=== PATIENT | male | born 1950 | race Caucasian/White ===

== ENCOUNTER 2019-12-06 07:59 | Inpatient (IN) ==
[2019-12-06] MEDS ORDERED: 0.9 % Sodium Chloride 1,000 ML IVC SCH (08:30)
[2019-12-06] MEDS ORDERED: ISOVUE-370 200 ML INFUS..BTL ONE (12:37)
[2019-12-06] MEDS ORDERED: *HR* Heparin 10,000 UNIT/10 ML VIAL ONE (12:37)
[2019-12-06] MEDS ORDERED: Heparin 1,000 UNITS/500 mL 500 ML ONE (12:37)
[2019-12-06] MEDS ORDERED: 0.9 % Sodium Chloride 1,000 ML ONE (12:37)
[2019-12-06] MEDS ORDERED: Nitroglycerin 1,000 MCG/10 ML VIAL IV ONE (12:38)
[2019-12-06] MEDS ORDERED: *HR* FentaNYL (PF) 100 MCG/2 ML VIAL ONE (13:30)
[2019-12-06] MEDS ORDERED: *HR* Midazolam HCl 2 MG/2 ML VIAL ONE (13:30)
[2019-12-06] MEDS ORDERED: Nitroglycerin 0.4 MG TAB.SUBL SL PRN (14:19)
[2019-12-06] MEDS ORDERED: Perflutren Lipid Microsphere 1.3 ML in 0.9 % Sodium Chloride 8.7 ML IVP PRN (14:21)
[2019-12-06] MEDS ORDERED: Ondansetron ODT 4 MG TAB.RAPDIS SL PRN (22:17)
[2019-12-06] MEDS: BuPROPion SR (12 HR) 150 MG TABLET PO SCH (23:07)
[2019-12-06] MEDS: Ondansetron ODT 4 MG TAB.RAPDIS SL PRN (23:07)
[2019-12-07 01:41] LABS: Basophils % 0.3 %; Eosinophils # 0.1 K/mcL (0.0-0.6); Eosinophils % 1.1 %; Hematocrit 46.4 % (37.5-50.1); Hemoglobin 15.5 g/dL (12.9-16.9); Immature Granulocytes % 0.3 % (0-4); Lymphocytes # 1.2 K/mcL (0.6-4.6); Lymphocytes % 13.7 %; Mean Corpuscular HGB Conc 33.4 g/dL (31.6-35.5); Mean Corpuscular Hemoglobin 32.1 pg (28.0-33.3); Mean Corpuscular Volume 96.1 fL (83.0-100.0); Mean Platelet Volume 9.7 fL (9.4-12.4); Monocytes # 0.6 K/mcL (0.0-1.3); Monocytes % 6.4 %; Neutrophils # 6.9 K/mcL (1.6-8.9); Platelet Count 224 K/mcL (140-400); Red Blood Count 4.83 M/mcL (4.19-5.50); Red Cell Distribution Width 13.1 % (11.5-14.5); Segmented Neutrophils % 78.2 %; White Blood Count 8.8 K/mcL (4.3-11.1)
[2019-12-07 02:02] LABS: BUN/Creatinine Ratio 17 (6-26); Blood Urea Nitrogen 12 mg/dL (8-23); Carbon Dioxide 20 mEq/L (23-29); Chloride 101 mEq/L (98-107); Glucose 131 mg/dL (70-105); Osmolality,Calculated 278 (280-300); Potassium 3.9 mEq/L (3.5-5.1); Sodium 133 mEq/L (136-145); eGFR For African Americans > 60 (> 60); eGFR For Non-African Americans > 60 (> 60)
[2019-12-07] MEDS: *HR* Enoxaparin 40 MG/0.4 ML SYRINGE SQ SCH (06:24)
[2019-12-07] MEDS ORDERED: (Ezetimibe [Zetia] 10 MG) PO SCH (09:00)
[2019-12-07] MEDS: BuPROPion SR (12 HR) 150 MG TABLET PO SCH (09:00)
[2019-12-07] MEDS: Budesonide/Formoterol 160/4.5 1 PUFF INH IH SCH (09:19)
[2019-12-07] MEDS: Ondansetron ODT 4 MG TAB.RAPDIS SL PRN (10:35)
[2019-12-07 11:17] LABS: Hematocrit 44.5 % (37.5-50.1); Mean Corpuscular HGB Conc 33.7 g/dL (31.6-35.5); Mean Corpuscular Hemoglobin 31.8 pg (28.0-33.3); Mean Corpuscular Volume 94.3 fL (83.0-100.0); Mean Platelet Volume 9.6 fL (9.4-12.4); Platelet Count 214 K/mcL (140-400); Red Blood Count 4.72 M/mcL (4.19-5.50); White Blood Count 7.9 K/mcL (4.3-11.1)
[2019-12-07] MEDS ORDERED: 0.9 % Sodium Chloride 500 ML IVC SCH (14:09)
[2019-12-07] MEDS ORDERED: Isovue-370 500 ML BOTTLE IVP ONE (14:16)
[2019-12-07] MEDS: Aspirin 81 MG TAB.CHEW PO SCH (14:57)
[2019-12-07] MEDS ORDERED: *HR* LORazepam 2 MG/ML VIAL IVP PRN (14:57)
[2019-12-07] MEDS: Metoprolol XL (24 HR) Succ 25 MG TAB.ER.24H PO SCH (14:59)
[2019-12-07] MEDS: Finasteride 5 MG TABLET PO SCH (14:59)
[2019-12-07 15:12] LABS: Alanine Aminotransferase 11 Units/L (7-52); Albumin 3.8 g/dL (3.5-5.7); Albumin/Globulin Ratio 1.5 (1.1-2.2); Alkaline Phosphatase 71 Units/L (34-104); Aspartate Amino Transferase 12 Units/L (13-39); Aspartate Amino Transferase 13 Units/L (13-39); BUN/Creatinine Ratio 13 (6-26); Bilirubin,Total 0.6 mg/dL (0.3-1.0); Blood Urea Nitrogen 11 mg/dL (8-23); Calcium 8.6 mg/dL (8.6-10.3); Carbon Dioxide 28 mEq/L (23-29); Chloride 100 mEq/L (98-107); Globulin 2.6 g/dL (2.4-3.5); Glucose 109 mg/dL (70-105); Lipase 33 Units/L (11-82); Osmolality,Calculated 278 (280-300); Sodium 134 mEq/L (136-145); Total Protein 6.4 g/dL (6.4-8.9); eGFR For African Americans > 60 (> 60); eGFR For Non-African Americans > 60 (> 60)
[2019-12-07] MEDS ORDERED: Thiamine (B-1) 100 MG, Folic Acid 1 MG, MVI, adult with vitamin K 10 ML in 0.9 % Sodi... IVPB ONE (16:00)
[2019-12-08] MEDS: *HR* Enoxaparin 40 MG/0.4 ML SYRINGE SQ SCH (05:50)
[2019-12-08] MEDS: Budesonide/Formoterol 160/4.5 1 PUFF INH IH SCH (07:33)
[2019-12-08] MEDS: Aspirin 81 MG TAB.CHEW PO SCH (07:37)
[2019-12-08] MEDS: Thiamine (B-1) 100 MG TABLET PO SCH (07:37)
[2019-12-08] MEDS: Folic Acid 1 MG TABLET PO SCH (07:37)
[2019-12-08] MEDS: Finasteride 5 MG TABLET PO SCH (07:37)
[2019-12-08] MEDS: Metoprolol XL (24 HR) Succ 25 MG TAB.ER.24H PO SCH (07:37)
[2019-12-08 08:34] LABS: Chol/HDL Ratio 5.7 (0-4.9)
[2019-12-08 08:42] LABS: Estimated Average Glucose 120 mg/dl
[2019-12-09 02:11] LABS: Basophils % 0.7 %; Eosinophils # 0.2 K/mcL (0.0-0.6); Eosinophils % 2.6 %; Hematocrit 39.5 % (37.5-50.1); Immature Granulocytes % 0.3 % (0-4); Lymphocytes # 1.9 K/mcL (0.6-4.6); Lymphocytes % 31.3 %; Mean Corpuscular HGB Conc 33.2 g/dL (31.6-35.5); Mean Corpuscular Hemoglobin 31.5 pg (28.0-33.3); Mean Platelet Volume 9.8 fL (9.4-12.4); Monocytes # 0.6 K/mcL (0.0-1.3); Monocytes % 9.1 %; Neutrophils # 3.4 K/mcL (1.6-8.9); Platelet Count 183 K/mcL (140-400); Red Blood Count 4.16 M/mcL (4.19-5.50); Red Cell Distribution Width 12.9 % (11.5-14.5)
[2019-12-09 02:23] LABS: BUN/Creatinine Ratio 18 (6-26); Blood Urea Nitrogen 14 mg/dL (8-23); Calcium 8.5 mg/dL (8.6-10.3); Carbon Dioxide 25 mEq/L (23-29); Chloride 103 mEq/L (98-107); Glucose 95 mg/dL (70-105); Osmolality,Calculated 280 (280-300); Potassium 4.4 mEq/L (3.5-5.1); Sodium 135 mEq/L (136-145); eGFR For African Americans > 60 (> 60); eGFR For Non-African Americans > 60 (> 60)
[2019-12-09 02:33] LABS: Hemoglobin 13.1 g/dL (12.9-16.9)
[2019-12-09] MEDS: *HR* Enoxaparin 40 MG/0.4 ML SYRINGE SQ SCH (05:49)
[2019-12-09] MEDS: Budesonide/Formoterol 160/4.5 1 PUFF INH IH SCH (07:23)
[2019-12-09] MEDS: Metoprolol XL (24 HR) Succ 25 MG TAB.ER.24H PO SCH (08:45)
[2019-12-09] MEDS: Finasteride 5 MG TABLET PO SCH (08:45)
[2019-12-09] MEDS: Aspirin 81 MG TAB.CHEW PO SCH (08:45)
[2019-12-09] MEDS: Thiamine (B-1) 100 MG TABLET PO SCH (08:45)
[2019-12-09] MEDS: Folic Acid 1 MG TABLET PO SCH (08:45)
[2019-12-09] MEDS ORDERED: Bisacodyl 10 MG RECTAL SUPPOSITORY RC ONE (22:21)
[2019-12-10] MEDS: *HR* Enoxaparin 40 MG/0.4 ML SYRINGE SQ SCH (06:10)
[2019-12-10 06:34] LABS: Basophils % 0.5 %; Eosinophils # 0.2 K/mcL (0.0-0.6); Eosinophils % 2.6 %; Hematocrit 42.6 % (37.5-50.1); Hemoglobin 14.2 g/dL (12.9-16.9); Immature Granulocytes % 0.3 % (0-4); Lymphocytes # 1.7 K/mcL (0.6-4.6); Lymphocytes % 28.1 %; Mean Corpuscular HGB Conc 33.3 g/dL (31.6-35.5); Mean Corpuscular Hemoglobin 31.6 pg (28.0-33.3); Mean Corpuscular Volume 94.7 fL (83.0-100.0); Mean Platelet Volume 9.6 fL (9.4-12.4); Monocytes # 0.5 K/mcL (0.0-1.3); Monocytes % 8.6 %; Neutrophils # 3.6 K/mcL (1.6-8.9); Platelet Count 196 K/mcL (140-400); Red Cell Distribution Width 12.6 % (11.5-14.5); Segmented Neutrophils % 59.9 %; White Blood Count 6.1 K/mcL (4.3-11.1)
[2019-12-10] MEDS: Budesonide/Formoterol 160/4.5 1 PUFF INH IH SCH (07:30)
[2019-12-10] MEDS: Folic Acid 1 MG TABLET PO SCH (10:27)
[2019-12-10] MEDS: Thiamine (B-1) 100 MG TABLET PO SCH (10:27)
[2019-12-10] MEDS: Aspirin 81 MG TAB.CHEW PO SCH (10:28)
[2019-12-10] MEDS: Finasteride 5 MG TABLET PO SCH (10:28)
[2019-12-10] MEDS: Metoprolol XL (24 HR) Succ 25 MG TAB.ER.24H PO SCH (10:28)
[2019-12-10] MEDS ORDERED: polyethylene glycoL 3350 17 GM POWD.PACK PO PRN (22:34)
[2019-12-11] MEDS: *HR* Enoxaparin 40 MG/0.4 ML SYRINGE SQ SCH (06:20)
[2019-12-11] MEDS: Budesonide/Formoterol 160/4.5 1 PUFF INH IH SCH (07:46)
[2019-12-11] MEDS: Metoprolol XL (24 HR) Succ 25 MG TAB.ER.24H PO SCH (08:43)
[2019-12-11] MEDS: Thiamine (B-1) 100 MG TABLET PO SCH (08:43)
[2019-12-11] MEDS: Aspirin 81 MG TAB.CHEW PO SCH (08:44)
[2019-12-11] MEDS: Finasteride 5 MG TABLET PO SCH (08:44)
[2019-12-11] MEDS: Folic Acid 1 MG TABLET PO SCH (08:44)
[2019-12-11] MEDS: Chlorhexidine Rinse 15 ML MOUTHWASH MM SCH (21:07)
[2019-12-12] MEDS ORDERED: Insulin Human Regular 100 UNIT in 0.9 % Sodium Chloride 100 ML IV PRN (06:00)
[2019-12-12] MEDS ORDERED: Heparin 15,000 UNIT in 0.9 % Sodium Chloride 500 ML IV ONE (06:00)
[2019-12-12] MEDS ORDERED: Dextrose 50 % in Water (Vial) 30 ML, Sodium Bicarbonate 20 MEQ, Lidocaine 1% 5 ML, Insu... TH ONE ×3 (06:00)
[2019-12-12] MEDS ORDERED: Norepinephrine 4 MG in 0.9 % Sodium Chloride 250 ML IVC PRN (06:00)
[2019-12-12] MEDS ORDERED: Dextrose 50 % in Water (Vial) 30 ML, Sodium Bicarbonate 20 MEQ, Potassium Chloride 15 M... TH ONE (06:00)
[2019-12-12] MEDS: Chlorhexidine Rinse 15 ML MOUTHWASH MM SCH ×2 (06:44→19:20)
[2019-12-12] MEDS ORDERED: CeFAZolin Syr 2,000MG/20 ML 2,000 MG/20 ML SYRINGE IVPB ONE ×2 (07:00→11:15)
[2019-12-12] MEDS: Budesonide/Formoterol 160/4.5 1 PUFF INH IH SCH (07:26)
[2019-12-12] MEDS ORDERED: *HR* Rocuronium Bromide 50 MG/5 ML VIAL ONE ×3 (07:53→16:36)
[2019-12-12] MEDS ORDERED: Tranexamic Acid 1,000 MG/10 ML VIAL ONE (07:54)
[2019-12-12] MEDS ORDERED: *HR* Midazolam HCl 5 MG/5 ML VIAL IVP ONE (07:55)
[2019-12-12] MEDS ORDERED: *HR* FentaNYL (PF) 1,000 MCG/20 ML VIAL ONE (07:55)
[2019-12-12] MEDS ORDERED: *HR* Propofol 200 MG/20 ML VIAL IVP ONE (07:56)
[2019-12-12] MEDS ORDERED: Lidocaine 2% Syringe 100 MG/5 ML ONE (08:00)
[2019-12-12] MEDS: Metoprolol XL (24 HR) Succ 25 MG TAB.ER.24H PO SCH (09:54)
[2019-12-12] MEDS ORDERED: Albumin Human 5% 50.0 GM/1,000 ML IV.SOLN ONE (10:57)
[2019-12-12] MEDS ORDERED: 0.9 % Sodium Chloride 500 ML ONE (10:58)
[2019-12-12] MEDS ORDERED: niCARdipine 20 MG/200 ML MLS IVC ONE (10:59)
[2019-12-12] MEDS ORDERED: Famotidine 20 MG/2 ML VIAL ONE (11:11)
[2019-12-12] MEDS ORDERED: *HR* PHENYLEPHRINE 1,000 MCG/10 ML SYRINGE IVP ONE (11:11)
[2019-12-12] MEDS ORDERED: *HR* Magnesium Sulfate 1 GM/2 ML VIAL ONE (11:12)
[2019-12-12] MEDS ORDERED: Mannitol 25% vial 12.5 GM/50 ML VIAL IVPB ONE (11:36)
[2019-12-12] MEDS ORDERED: Tranexamic Acid 1,000 MG/10 ML VIAL IVP ONE (11:36)
[2019-12-12] MEDS ORDERED: *HR* Heparin 10,000 UNIT/10 ML VIAL IR ONE (11:36)
[2019-12-12] MEDS ORDERED: Albumin Human 25% 25 GM/100 ML IV.SOLN IVPB ONE (11:36)
[2019-12-12] MEDS ORDERED: *HR* Phenylephrine 10 MG/ML VIAL IVC ONE (11:36)
[2019-12-12] MEDS ORDERED: Lidocaine 2% Syringe 100 MG/5 ML IVP ONE (11:36)
[2019-12-12 13:21] LABS: ABG Base Excess -2 mEq/L (-2 to 3); ABG Chloride 107 mEq/L (98-107); ABG Glucose 91 mg/dL (60-95); ABG HCO3 24 mEq/L (21-27); ABG Ionized Calcium 1.04 mmol/L (1.15-1.35); ABG Oxygen Saturation 99 % (95-98); ABG PCO2 45 mmHg (35-45); ABG PH 7.34 pH Units (7.32-7.45); ABG PO2 162 mmHg (85-104); ABG TCO2 26 mEq/L (20-26)
[2019-12-12 14:59] LABS: ABG Base Excess -1 mEq/L (-2 to 3); ABG Chloride 106 mEq/L (98-107); ABG Glucose 97 mg/dL (60-95); ABG HCO3 25 mEq/L (21-27); ABG Ionized Calcium 1.14 mmol/L (1.15-1.35); ABG Oxygen Saturation 100 % (95-98); ABG PCO2 43 mmHg (35-45); ABG PH 7.37 pH Units (7.32-7.45); ABG PO2 228 mmHg (85-104); ABG TCO2 26 mEq/L (20-26)
[2019-12-12 15:15] LABS: ABG Base Excess -1 mEq/L (-2 to 3); ABG Chloride 102 mEq/L (98-107); ABG Glucose 187 mg/dL (60-95); ABG HCO3 23 mEq/L (21-27); ABG Oxygen Saturation 100 % (95-98); ABG PCO2 37 mmHg (35-45); ABG PO2 579 mmHg (85-104); ABG TCO2 24 mEq/L (20-26)
[2019-12-12] MEDS ORDERED: Protamine Sulfate 250 MG/25 ML VIAL IVP ONE (15:24)
[2019-12-12] MEDS ORDERED: Calcium Gluconate 1,000 MG/10 ML VIAL ONE (15:24)
[2019-12-12 15:49] LABS: ABG Base Excess 5 mEq/L (-2 to 3); ABG Chloride 100 mEq/L (98-107); ABG Glucose 192 mg/dL (60-95); ABG HCO3 29 mEq/L (21-27); ABG Ionized Calcium 0.99 mmol/L (1.15-1.35); ABG Oxygen Saturation 100 % (95-98); ABG PCO2 38 mmHg (35-45); ABG PH 7.49 pH Units (7.32-7.45); ABG PO2 505 mmHg (85-104); ABG TCO2 30 mEq/L (20-26)
[2019-12-12 16:20] LABS: ABG Base Excess 1 mEq/L (-2 to 3); ABG Chloride 101 mEq/L (98-107); ABG Glucose 123 mg/dL (60-95); ABG HCO3 28 mEq/L (21-27); ABG Ionized Calcium 1.72 mmol/L (1.15-1.35); ABG Oxygen Saturation 100 % (95-98); ABG PCO2 54 mmHg (35-45); ABG PH 7.32 pH Units (7.32-7.45); ABG PO2 486 mmHg (85-104); ABG TCO2 30 mEq/L (20-26)
[2019-12-12 16:26] LABS: ABG Base Excess 1 mEq/L (-2 to 3); ABG Chloride 101 mEq/L (98-107); ABG Glucose 110 mg/dL (60-95); ABG HCO3 27 mEq/L (21-27); ABG Ionized Calcium 1.23 mmol/L (1.15-1.35); ABG Oxygen Saturation 100 % (95-98); ABG PCO2 44 mmHg (35-45); ABG PH 7.39 pH Units (7.32-7.45); ABG PO2 478 mmHg (85-104); ABG TCO2 28 mEq/L (20-26)
[2019-12-12] MEDS ORDERED: Albumin Human 5% 12.5 GM/250 ML IV.SOLN ONE (16:26)
[2019-12-12 16:48] LABS: ABG Base Excess 1 mEq/L (-2 to 3); ABG Chloride 104 mEq/L (98-107); ABG Glucose 93 mg/dL (60-95); ABG HCO3 26 mEq/L (21-27); ABG Ionized Calcium 1.19 mmol/L (1.15-1.35); ABG Oxygen Saturation 100 % (95-98); ABG PCO2 42 mmHg (35-45); ABG PH 7.39 pH Units (7.32-7.45); ABG PO2 330 mmHg (85-104); ABG TCO2 27 mEq/L (20-26)
[2019-12-12] MEDS ORDERED: Insulin Regular, Human 100 UNIT/ML IV PRN (17:11)
[2019-12-12] MEDS ORDERED: Acetaminophen 325 MG TABLET PO PRN (17:11)
[2019-12-12] MEDS ORDERED: Ondansetron 4 MG/2 ML VIAL IVP PRN (17:11)
[2019-12-12] MEDS ORDERED: *HR* Dextrose 50 % in Water (Vial) 50 ML VIAL IVP PRN (17:11)
[2019-12-12] MEDS ORDERED: Potassium Chloride 40 MEQ/200 ML BAG IVPB PRN (17:11)
[2019-12-12] MEDS ORDERED: *HR* Promethazine 25 MG/ML VIAL IVP PRN (17:11)
[2019-12-12 17:38] LABS: ABG Base Excess 1 mEq/L (-2 to 3); ABG HCO3 27 mEq/L (21-27); ABG Oxygen Saturation 97 % (95-98); ABG PCO2 44 mmHg (35-45); ABG PH 7.39 pH Units (7.32-7.45); ABG PO2 93 mmHg (85-104); ABG TCO2 28 mEq/L (20-26); Blood Gas Modality VC; Blood Gas VT 600 cc
[2019-12-12] MEDS: niCARdipine 20 MG/200 ML MLS IVC SCH ×2 (17:45→20:33)
[2019-12-12 17:51] LABS: Basophils % 0.2 %; Eosinophils % 0.2 %; Hematocrit 34.7 % (37.5-50.1); Hemoglobin 11.8 g/dL (12.9-16.9); Immature Granulocytes % 0.6 % (0-4); Lymphocytes # 0.6 K/mcL (0.6-4.6); Lymphocytes % 5.8 %; Mean Corpuscular Hemoglobin 32.3 pg (28.0-33.3); Mean Corpuscular Volume 95.1 fL (83.0-100.0); Mean Platelet Volume 10.2 fL (9.4-12.4); Monocytes # 0.6 K/mcL (0.0-1.3); Monocytes % 5.7 %; Neutrophils # 8.9 K/mcL (1.6-8.9); Platelet Count 125 K/mcL (140-400); Red Blood Count 3.65 M/mcL (4.19-5.50); Red Cell Distribution Width 12.4 % (11.5-14.5); Segmented Neutrophils % 87.5 %; White Blood Count 10.2 K/mcL (4.3-11.1)
[2019-12-12 18:13] LABS: BUN/Creatinine Ratio 25 (6-26); Blood Urea Nitrogen 10 mg/dL (8-23); Calcium 5.1 mg/dL (8.6-10.3); Carbon Dioxide 19 mEq/L (23-29); Chloride 116 mEq/L (98-107); Glucose 170 mg/dL (70-105); Magnesium 1.9 mg/dL (1.6-2.6); Osmolality,Calculated 313 (280-300); Potassium 2.5 mEq/L (3.5-5.1); Sodium 150 mEq/L (136-145); eGFR For African Americans > 60 (> 60); eGFR For Non-African Americans > 60 (> 60)
[2019-12-12] MEDS: *HR* FentaNYL (PF) 100 MCG/2 ML VIAL IVP PRN ×4 (18:24→23:31)
[2019-12-12] MEDS: Finasteride 5 MG TABLET PO SCH (18:26)
[2019-12-12] MEDS: Thiamine (B-1) 100 MG TABLET PO SCH (18:26)
[2019-12-12] MEDS: Folic Acid 1 MG TABLET PO SCH (18:26)
[2019-12-12 18:30] LABS: Basophils % 0.3 %; Eosinophils % 0.3 %; Hematocrit 38.5 % (37.5-50.1); Hemoglobin 12.8 g/dL (12.9-16.9); Immature Granulocytes % 0.6 % (0-4); Lymphocytes # 0.8 K/mcL (0.6-4.6); Lymphocytes % 7.9 %; Mean Corpuscular HGB Conc 33.2 g/dL (31.6-35.5); Mean Corpuscular Hemoglobin 31.8 pg (28.0-33.3); Mean Corpuscular Volume 95.8 fL (83.0-100.0); Mean Platelet Volume 9.9 fL (9.4-12.4); Monocytes # 0.8 K/mcL (0.0-1.3); Monocytes % 7.2 %; Neutrophils # 8.8 K/mcL (1.6-8.9); Platelet Count 121 K/mcL (140-400); Red Blood Count 4.02 M/mcL (4.19-5.50); Red Cell Distribution Width 12.5 % (11.5-14.5); Segmented Neutrophils % 83.7 %; White Blood Count 10.6 K/mcL (4.3-11.1)
[2019-12-12] MEDS: 0.9 % Sodium Chloride 1,000 ML IVC SCH (18:33)
[2019-12-12 19:06] LABS: BUN/Creatinine Ratio 19 (6-26); Blood Urea Nitrogen 13 mg/dL (8-23); Calcium 8.4 mg/dL (8.6-10.3); Carbon Dioxide 28 mEq/L (23-29); Chloride 105 mEq/L (98-107); Glucose 100 mg/dL (70-105); Magnesium 3.1 mg/dL (1.6-2.6); Osmolality,Calculated 290 (280-300); Potassium 3.4 mEq/L (3.5-5.1); Sodium 140 mEq/L (136-145); eGFR For African Americans > 60 (> 60); eGFR For Non-African Americans > 60 (> 60)
[2019-12-12 19:11] LABS: INR 1.2; Prothrombin Time 13.2 Seconds (9.4-12.1)
[2019-12-12 19:14] LABS: Activated Partial Thrombo Time 29.1 Seconds (26.0-36.0)
[2019-12-12] MEDS: *HR* OxyCODONE/APAP 5/325 TABLET PO PRN ×2 (19:18→23:31)
[2019-12-12] MEDS: Norepinephrine 4 MG/254 ML IV.SOLN IVC SCH ×2 (19:19→20:47)
[2019-12-12] MEDS: Insulin Human Regular 100 UNIT in 0.9 % Sodium Chloride 100 ML IVC SCH ×2 (19:19→20:20)
[2019-12-12] MEDS: Albumin Human 5% 12.5 GM/250 ML IV.SOLN IVPB PRN ×3 (19:49→21:55)
[2019-12-12 21:06] LABS: ABG Base Excess 0 mEq/L (-2 to 3); ABG HCO3 26 mEq/L (21-27); ABG Oxygen Saturation 99 % (95-98); ABG PCO2 45 mmHg (35-45); ABG PH 7.36 pH Units (7.32-7.45); ABG PO2 131 mmHg (85-104); ABG TCO2 27 mEq/L (20-26); Blood Gas Modality ASSIST CONTROL; Blood Gas VT 600 cc
[2019-12-12] MEDS: CeFAZolin 2 GM/120 ML BAG IVPB SCH (21:43)
[2019-12-12 22:53] LABS: ABG Base Excess 1 mEq/L (-2 to 3); ABG HCO3 26 mEq/L (21-27); ABG Oxygen Saturation 98 % (95-98); ABG PCO2 46 mmHg (35-45); ABG PH 7.36 pH Units (7.32-7.45); ABG PO2 103 mmHg (85-104); ABG TCO2 28 mEq/L (20-26)
[2019-12-13] MEDS: *HR* FentaNYL (PF) 100 MCG/2 ML VIAL IVP PRN ×5 (02:13→13:50)
[2019-12-13] MEDS: niCARdipine 20 MG/200 ML MLS IVC SCH ×6 (02:14→23:30)
[2019-12-13] MEDS: Albumin Human 5% 12.5 GM/250 ML IV.SOLN IVPB PRN ×2 (03:55→14:41)
[2019-12-13 04:24] LABS: Basophils % 0.1 %; Hematocrit 31.5 % (37.5-50.1); Immature Granulocytes % 0.4 % (0-4); Lymphocytes # 1.1 K/mcL (0.6-4.6); Lymphocytes % 10.6 %; Mean Corpuscular Volume 96.9 fL (83.0-100.0); Mean Platelet Volume 10.4 fL (9.4-12.4); Monocytes # 0.9 K/mcL (0.0-1.3); Monocytes % 8.5 %; Neutrophils # 8.5 K/mcL (1.6-8.9); Platelet Count 137 K/mcL (140-400); Red Blood Count 3.25 M/mcL (4.19-5.50); Red Cell Distribution Width 12.7 % (11.5-14.5); Segmented Neutrophils % 80.4 %; White Blood Count 10.5 K/mcL (4.3-11.1)
[2019-12-13] MEDS: *HR* OxyCODONE/APAP 5/325 TABLET PO PRN ×2 (04:28→19:35)
[2019-12-13 04:30] LABS: Hemoglobin 10.4 g/dL (12.9-16.9)
[2019-12-13] MEDS ORDERED: Furosemide 20 MG/2 ML VIAL IVP ONE (05:00)
[2019-12-13] MEDS: CeFAZolin 2 GM/120 ML BAG IVPB SCH (05:04)
[2019-12-13 05:49] LABS: BUN/Creatinine Ratio 21 (6-26); Blood Urea Nitrogen 17 mg/dL (8-23); Calcium 8.1 mg/dL (8.6-10.3); Carbon Dioxide 23 mEq/L (23-29); Chloride 106 mEq/L (98-107); Glucose 156 mg/dL (70-105); Osmolality,Calculated 291 (280-300); Sodium 138 mEq/L (136-145); eGFR For African Americans > 60 (> 60); eGFR For Non-African Americans > 60 (> 60)
[2019-12-13] MEDS: Budesonide/Formoterol 160/4.5 1 PUFF INH IH SCH (07:27)
[2019-12-13] MEDS: 0.9 % Sodium Chloride 1,000 ML IVC SCH (08:11)
[2019-12-13] MEDS: Folic Acid 1 MG TABLET PO SCH (08:43)
[2019-12-13] MEDS: Aspirin Enteric Coated 81 MG Tablet PO SCH (08:43)
[2019-12-13] MEDS: Chlorhexidine Rinse 15 ML MOUTHWASH MM SCH ×2 (08:43→20:50)
[2019-12-13] MEDS: Pantoprazole 40 MG VIAL IVP SCH (08:44)
[2019-12-13] MEDS: Thiamine (B-1) 100 MG TABLET PO SCH (08:44)
[2019-12-13] MEDS: Finasteride 5 MG TABLET PO SCH (08:44)
[2019-12-13] MEDS: Ketorolac 15 MG/ML VIAL IVP SCH ×3 (10:35→23:51)
[2019-12-13] MEDS: Norepinephrine 4 MG/254 ML IV.SOLN IVC SCH ×2 (12:01→17:27)
[2019-12-13] MEDS ORDERED: Albumin Human 5% 25.0 GM/500 ML IV.SOLN ONE (14:41)
[2019-12-13] MEDS ORDERED: Albumin Human 5% 12.5 GM/250 ML IV.SOLN IVPB ONE (14:54)
[2019-12-14] MEDS: niCARdipine 20 MG/200 ML MLS IVC SCH ×5 (03:32→21:03)
[2019-12-14 03:33] LABS: Basophils % 0.4 %; Eosinophils # 0.1 K/mcL (0.0-0.6); Eosinophils % 0.8 %; Hematocrit 26.2 % (37.5-50.1); Hemoglobin 8.7 g/dL (12.9-16.9); Immature Granulocytes % 0.4 % (0-4); Lymphocytes # 1.3 K/mcL (0.6-4.6); Mean Corpuscular HGB Conc 33.2 g/dL (31.6-35.5); Mean Corpuscular Hemoglobin 32.2 pg (28.0-33.3); Mean Platelet Volume 10.4 fL (9.4-12.4); Monocytes # 0.4 K/mcL (0.0-1.3); Monocytes % 5.8 %; Neutrophils # 5.8 K/mcL (1.6-8.9); Platelet Count 119 K/mcL (140-400); Segmented Neutrophils % 75.6 %; White Blood Count 7.6 K/mcL (4.3-11.1)
[2019-12-14 04:02] LABS: Platelet Estimate Slight Decrease (Normal)
[2019-12-14 04:20] LABS: BUN/Creatinine Ratio 20 (6-26); Blood Urea Nitrogen 21 mg/dL (8-23); Calcium 8.2 mg/dL (8.6-10.3); Carbon Dioxide 25 mEq/L (23-29); Chloride 106 mEq/L (98-107); Glucose 120 mg/dL (70-105); Osmolality,Calculated 288 (280-300); Potassium 3.8 mEq/L (3.5-5.1); Sodium 137 mEq/L (136-145); eGFR For African Americans > 60 (> 60); eGFR For Non-African Americans > 60 (> 60)
[2019-12-14] MEDS: Ketorolac 15 MG/ML VIAL IVP SCH ×4 (05:23→23:26)
[2019-12-14] MEDS: Budesonide/Formoterol 160/4.5 1 PUFF INH IH SCH (07:45)
[2019-12-14] MEDS: Pantoprazole 40 MG VIAL IVP SCH (08:10)
[2019-12-14] MEDS: Thiamine (B-1) 100 MG TABLET PO SCH (08:11)
[2019-12-14] MEDS: *HR* OxyCODONE/APAP 5/325 TABLET PO PRN ×3 (08:11→17:58)
[2019-12-14] MEDS: Aspirin Enteric Coated 81 MG Tablet PO SCH (08:11)
[2019-12-14] MEDS: Folic Acid 1 MG TABLET PO SCH (08:12)
[2019-12-14] MEDS: Finasteride 5 MG TABLET PO SCH (08:12)
[2019-12-14] MEDS: Chlorhexidine Rinse 15 ML MOUTHWASH MM SCH ×2 (08:12→21:03)
[2019-12-14] MEDS ORDERED: Amiodarone Premix 150 MG/100 ML BAG IVPB ONE (09:24)
[2019-12-14] MEDS ORDERED: Furosemide 20 MG TABLET PO ONE (09:49)
[2019-12-14] MEDS: Ipratropium/Albuterol Neb 3 ML IH SCH ×3 (10:00→22:35)
[2019-12-14] MEDS ORDERED: Amiodarone Premix 360 MG/200 ML BAG IVC ONE (10:00)
[2019-12-14] MEDS ORDERED: Dextrose Gel 15 GM/37.5 ML TUBE PO PRN ×2 (10:38)
[2019-12-14] MEDS ORDERED: D5% in Water 1,000 ML IVC PRN (10:38)
[2019-12-14] MEDS ORDERED: Furosemide 20 MG/2 ML VIAL IVP ONE (10:38)
[2019-12-14] MEDS: predniSONE 20 MG TABLET PO SCH (11:02)
[2019-12-14] MEDS: Doxycycline 100 MG CAPSULE PO SCH ×2 (12:35→20:53)
[2019-12-14] MEDS: Insulin LISPRO 300 UNITS/3 ML VIAL SQ SCH ×3 (12:35→20:51)
[2019-12-14] MEDS: Amiodarone Premix 360 MG/200 ML BAG IVC SCH (17:17)
[2019-12-15] MEDS: niCARdipine 20 MG/200 ML MLS IVC SCH ×2 (02:05→05:10)
[2019-12-15 03:46] LABS: Basophils % 0.1 %; Eosinophils % 0.2 %; Hematocrit 25.6 % (37.5-50.1); Hemoglobin 8.4 g/dL (12.9-16.9); Immature Granulocytes % 0.9 % (0-4); Lymphocytes # 1.1 K/mcL (0.6-4.6); Lymphocytes % 11.5 %; Mean Corpuscular HGB Conc 32.8 g/dL (31.6-35.5); Mean Corpuscular Hemoglobin 32.7 pg (28.0-33.3); Mean Corpuscular Volume 99.6 fL (83.0-100.0); Mean Platelet Volume 10.8 fL (9.4-12.4); Monocytes # 0.4 K/mcL (0.0-1.3); Monocytes % 4.7 %; Neutrophils # 7.5 K/mcL (1.6-8.9); Platelet Count 115 K/mcL (140-400); Red Blood Count 2.57 M/mcL (4.19-5.50); Red Cell Distribution Width 13.1 % (11.5-14.5); Segmented Neutrophils % 82.6 %; White Blood Count 9.1 K/mcL (4.3-11.1)
[2019-12-15 03:59] LABS: BUN/Creatinine Ratio 21 (6-26); Blood Urea Nitrogen 23 mg/dL (8-23); Calcium 7.9 mg/dL (8.6-10.3); Carbon Dioxide 26 mEq/L (23-29); Chloride 104 mEq/L (98-107); Glucose 133 mg/dL (70-105); Osmolality,Calculated 288 (280-300); Sodium 136 mEq/L (136-145); eGFR For African Americans > 60 (> 60); eGFR For Non-African Americans > 60 (> 60)
[2019-12-15] MEDS: Ipratropium/Albuterol Neb 3 ML IH SCH ×4 (03:59→21:35)
[2019-12-15 04:04] LABS: Platelet Estimate Slight Decrease (Normal)
[2019-12-15] MEDS: Amiodarone Premix 360 MG/200 ML BAG IVC SCH (05:13)
[2019-12-15] MEDS: Ketorolac 15 MG/ML VIAL IVP SCH (05:40)
[2019-12-15] MEDS: Insulin LISPRO 300 UNITS/3 ML VIAL SQ SCH ×4 (08:01→20:47)
[2019-12-15] MEDS: Chlorhexidine Rinse 15 ML MOUTHWASH MM SCH ×2 (08:59→20:46)
[2019-12-15] MEDS: Aspirin Enteric Coated 81 MG Tablet PO SCH (08:59)
[2019-12-15] MEDS: predniSONE 20 MG TABLET PO SCH (08:59)
[2019-12-15] MEDS: Thiamine (B-1) 100 MG TABLET PO SCH (09:00)
[2019-12-15] MEDS: Finasteride 5 MG TABLET PO SCH (09:00)
[2019-12-15] MEDS: Folic Acid 1 MG TABLET PO SCH (09:00)
[2019-12-15] MEDS: Doxycycline 100 MG CAPSULE PO SCH ×2 (09:00→20:46)
[2019-12-15] MEDS: *HR* Amiodarone 200 MG TABLET PO SCH ×2 (10:31→20:46)
[2019-12-15] MEDS: Budesonide/Formoterol 160/4.5 1 PUFF INH IH SCH (10:31)
[2019-12-15] MEDS: Furosemide 20 MG/2 ML VIAL IVP SCH ×2 (10:31→20:46)
[2019-12-16] MEDS: Ipratropium/Albuterol Neb 3 ML IH SCH ×4 (03:34→21:42)
[2019-12-16 03:51] LABS: Basophils % 0.1 %; Eosinophils % 0.2 %; Hematocrit 26.6 % (37.5-50.1); Hemoglobin 8.6 g/dL (12.9-16.9); Immature Granulocytes % 0.7 % (0-4); Lymphocytes # 1.2 K/mcL (0.6-4.6); Lymphocytes % 10.5 %; Mean Corpuscular HGB Conc 32.3 g/dL (31.6-35.5); Mean Corpuscular Hemoglobin 31.5 pg (28.0-33.3); Mean Corpuscular Volume 97.4 fL (83.0-100.0); Mean Platelet Volume 10.7 fL (9.4-12.4); Monocytes # 0.8 K/mcL (0.0-1.3); Monocytes % 6.6 %; Neutrophils # 9.4 K/mcL (1.6-8.9); Platelet Count 172 K/mcL (140-400); Red Blood Count 2.73 M/mcL (4.19-5.50); Segmented Neutrophils % 81.9 %; White Blood Count 11.5 K/mcL (4.3-11.1)
[2019-12-16 04:10] LABS: BUN/Creatinine Ratio 21 (6-26); Blood Urea Nitrogen 21 mg/dL (8-23); Calcium 8.4 mg/dL (8.6-10.3); Carbon Dioxide 25 mEq/L (23-29); Chloride 103 mEq/L (98-107); Glucose 114 mg/dL (70-105); Osmolality,Calculated 288 (280-300); Potassium 3.7 mEq/L (3.5-5.1); Sodium 137 mEq/L (136-145); eGFR For African Americans > 60 (> 60); eGFR For Non-African Americans > 60 (> 60)
[2019-12-16] MEDS: *HR* OxyCODONE/APAP 5/325 TABLET PO PRN (04:54)
[2019-12-16] MEDS: Chlorhexidine Rinse 15 ML MOUTHWASH MM SCH ×2 (08:21→22:08)
[2019-12-16] MEDS: Insulin LISPRO 300 UNITS/3 ML VIAL SQ SCH ×4 (08:21→22:10)
[2019-12-16] MEDS: Furosemide 20 MG/2 ML VIAL IVP SCH ×2 (08:21→22:09)
[2019-12-16] MEDS: Aspirin Enteric Coated 81 MG Tablet PO SCH (08:22)
[2019-12-16] MEDS: *HR* Amiodarone 200 MG TABLET PO SCH (08:22)
[2019-12-16] MEDS: Folic Acid 1 MG TABLET PO SCH (08:22)
[2019-12-16] MEDS: Doxycycline 100 MG CAPSULE PO SCH ×2 (08:22→22:09)
[2019-12-16] MEDS: predniSONE 20 MG TABLET PO SCH (08:22)
[2019-12-16] MEDS: Thiamine (B-1) 100 MG TABLET PO SCH (08:23)
[2019-12-16] MEDS: Finasteride 5 MG TABLET PO SCH (08:23)
[2019-12-16] MEDS ORDERED: predniSONE 20 MG TABLET PO SCH (09:00)
[2019-12-16] MEDS ORDERED: Furosemide 20 MG/2 ML VIAL IVP SCH (09:00)
[2019-12-16] MEDS ORDERED: *HR* Amiodarone 200 MG TABLET PO SCH (09:00)
[2019-12-16] MEDS: Budesonide/Formoterol 160/4.5 1 PUFF INH IH SCH (10:37)
[2019-12-16] MEDS ORDERED: Dextrose Gel 15 GM/37.5 ML TUBE PO PRN ×2 (11:41)
[2019-12-16] MEDS ORDERED: D5% in Water 1,000 ML IVC PRN (11:41)
[2019-12-16] MEDS ORDERED: Acetaminophen 325 MG TABLET PO PRN (11:41)
[2019-12-16] MEDS ORDERED: Nitroglycerin 0.4 MG TAB.SUBL SL PRN (11:41)
[2019-12-16] MEDS ORDERED: polyethylene glycoL 3350 17 GM POWD.PACK PO PRN (11:41)
[2019-12-16] MEDS ORDERED: *HR* Promethazine 25 MG/ML VIAL IVP PRN (11:41)
[2019-12-16] MEDS ORDERED: Ondansetron 4 MG/2 ML VIAL IVP PRN (11:41)
[2019-12-16] MEDS: *HR* Heparin 5,000 UNIT/ML VIAL SQ SCH (18:30)
[2019-12-17 03:25] LABS: Basophils % 0.1 %; Eosinophils % 0.1 %; Hemoglobin 8.6 g/dL (12.9-16.9); Immature Granulocytes % 0.5 % (0-4); Lymphocytes # 0.9 K/mcL (0.6-4.6); Mean Corpuscular HGB Conc 33.1 g/dL (31.6-35.5); Mean Corpuscular Hemoglobin 31.7 pg (28.0-33.3); Mean Corpuscular Volume 95.9 fL (83.0-100.0); Mean Platelet Volume 10.7 fL (9.4-12.4); Monocytes # 0.6 K/mcL (0.0-1.3); Monocytes % 6.5 %; Neutrophils # 7.2 K/mcL (1.6-8.9); Platelet Count 226 K/mcL (140-400); Red Blood Count 2.71 M/mcL (4.19-5.50); Red Cell Distribution Width 13.1 % (11.5-14.5); Segmented Neutrophils % 82.8 %; White Blood Count 8.6 K/mcL (4.3-11.1)
[2019-12-17] MEDS: Ipratropium/Albuterol Neb 3 ML IH SCH ×4 (03:41→21:48)
[2019-12-17 03:43] LABS: BUN/Creatinine Ratio 25 (6-26); Blood Urea Nitrogen 26 mg/dL (8-23); Calcium 8.7 mg/dL (8.6-10.3); Carbon Dioxide 25 mEq/L (23-29); Chloride 103 mEq/L (98-107); Glucose 127 mg/dL (70-105); Osmolality,Calculated 292 (280-300); Potassium 3.8 mEq/L (3.5-5.1); Sodium 138 mEq/L (136-145); eGFR For African Americans > 60 (> 60); eGFR For Non-African Americans > 60 (> 60)
[2019-12-17] MEDS: *HR* Heparin 5,000 UNIT/ML VIAL SQ SCH ×2 (06:42→17:41)
[2019-12-17] MEDS: Insulin LISPRO 300 UNITS/3 ML VIAL SQ SCH ×4 (09:21→20:42)
[2019-12-17] MEDS: Furosemide 20 MG/2 ML VIAL IVP SCH ×2 (09:23→20:39)
[2019-12-17] MEDS: Doxycycline 100 MG CAPSULE PO SCH ×2 (09:25→20:40)
[2019-12-17] MEDS: Folic Acid 1 MG TABLET PO SCH (09:25)
[2019-12-17] MEDS: Thiamine (B-1) 100 MG TABLET PO SCH (09:25)
[2019-12-17] MEDS: predniSONE 20 MG TABLET PO SCH (09:25)
[2019-12-17] MEDS: Finasteride 5 MG TABLET PO SCH (09:25)
[2019-12-17] MEDS: *HR* Amiodarone 200 MG TABLET PO SCH (09:26)
[2019-12-17] MEDS: Chlorhexidine Rinse 15 ML MOUTHWASH MM SCH ×2 (09:26→20:41)
[2019-12-17] MEDS: Aspirin Enteric Coated 81 MG Tablet PO SCH (09:26)
[2019-12-17] MEDS: Budesonide/Formoterol 160/4.5 1 PUFF INH IH SCH (10:02)
[2019-12-17] MEDS: Sennosides/Docusate Sodium TABLET PO SCH (17:55)
[2019-12-18] MEDS: Ipratropium/Albuterol Neb 3 ML IH SCH ×4 (03:36→21:34)
[2019-12-18] MEDS: *HR* Heparin 5,000 UNIT/ML VIAL SQ SCH ×2 (06:43→16:40)
[2019-12-18] MEDS: Insulin LISPRO 300 UNITS/3 ML VIAL SQ SCH ×4 (08:10→21:05)
[2019-12-18] MEDS: Sennosides/Docusate Sodium TABLET PO SCH (08:15)
[2019-12-18] MEDS: *HR* OxyCODONE/APAP 5/325 TABLET PO PRN (08:15)
[2019-12-18] MEDS: Doxycycline 100 MG CAPSULE PO SCH ×2 (08:15→21:12)
[2019-12-18] MEDS: Aspirin Enteric Coated 81 MG Tablet PO SCH (08:15)
[2019-12-18] MEDS: Thiamine (B-1) 100 MG TABLET PO SCH (08:15)
[2019-12-18] MEDS: Finasteride 5 MG TABLET PO SCH (08:15)
[2019-12-18] MEDS: predniSONE 20 MG TABLET PO SCH (08:15)
[2019-12-18] MEDS: Folic Acid 1 MG TABLET PO SCH (08:16)
[2019-12-18] MEDS: *HR* Amiodarone 200 MG TABLET PO SCH (08:16)
[2019-12-18] MEDS: Chlorhexidine Rinse 15 ML MOUTHWASH MM SCH ×2 (08:17→21:12)
[2019-12-18] MEDS: Furosemide 20 MG/2 ML VIAL IVP SCH ×2 (08:17→21:12)
[2019-12-18] MEDS: Budesonide/Formoterol 160/4.5 1 PUFF INH IH SCH (09:17)
[2019-12-18] MEDS: Bisacodyl 10 MG RECTAL SUPPOSITORY RC SCH (12:22)
[2019-12-18 14:36] LABS: Basophils % 0.1 %; Eosinophils # 0.3 K/mcL (0.0-0.6); Hematocrit 29.8 % (37.5-50.1); Hemoglobin 9.5 g/dL (12.9-16.9); Immature Granulocytes % 0.9 % (0-4); Lymphocytes # 0.9 K/mcL (0.6-4.6); Lymphocytes % 9.3 %; Mean Corpuscular HGB Conc 31.9 g/dL (31.6-35.5); Mean Corpuscular Hemoglobin 31.6 pg (28.0-33.3); Mean Platelet Volume 10.2 fL (9.4-12.4); Monocytes # 0.6 K/mcL (0.0-1.3); Monocytes % 6.1 %; Neutrophils # 8.1 K/mcL (1.6-8.9); Platelet Count 310 K/mcL (140-400); Red Blood Count 3.01 M/mcL (4.19-5.50); Red Cell Distribution Width 13.3 % (11.5-14.5); Segmented Neutrophils % 80.6 %; White Blood Count 10.1 K/mcL (4.3-11.1)
[2019-12-18 14:55] LABS: BUN/Creatinine Ratio 26 (6-26); Blood Urea Nitrogen 30 mg/dL (8-23); Calcium 9.1 mg/dL (8.6-10.3); Carbon Dioxide 26 mEq/L (23-29); Chloride 101 mEq/L (98-107); Glucose 150 mg/dL (70-105); Osmolality,Calculated 289 (280-300); Potassium 3.5 mEq/L (3.5-5.1); Sodium 135 mEq/L (136-145); eGFR For African Americans > 60 (> 60); eGFR For Non-African Americans > 60 (> 60)
[2019-12-19] MEDS: Ipratropium/Albuterol Neb 3 ML IH SCH ×4 (03:36→22:11)
[2019-12-19 03:54] LABS: Hematocrit 27.8 % (37.5-50.1); Hemoglobin 8.9 g/dL (12.9-16.9); Mean Corpuscular Hemoglobin 30.9 pg (28.0-33.3); Mean Corpuscular Volume 96.5 fL (83.0-100.0); Mean Platelet Volume 10.4 fL (9.4-12.4); Platelet Count 315 K/mcL (140-400); Red Blood Count 2.88 M/mcL (4.19-5.50); White Blood Count 8.7 K/mcL (4.3-11.1)
[2019-12-19 04:11] LABS: BUN/Creatinine Ratio 25 (6-26); Blood Urea Nitrogen 31 mg/dL (8-23); Calcium 8.8 mg/dL (8.6-10.3); Carbon Dioxide 26 mEq/L (23-29); Chloride 103 mEq/L (98-107); Glucose 113 mg/dL (70-105); Osmolality,Calculated 293 (280-300); Potassium 3.6 mEq/L (3.5-5.1); Sodium 138 mEq/L (136-145); eGFR For African Americans > 60 (> 60); eGFR For Non-African Americans 58 (> 60)
[2019-12-19] MEDS: *HR* Heparin 5,000 UNIT/ML VIAL SQ SCH ×2 (05:36→16:56)
[2019-12-19] MEDS: Insulin LISPRO 300 UNITS/3 ML VIAL SQ SCH ×4 (08:07→20:57)
[2019-12-19] MEDS: Furosemide 20 MG/2 ML VIAL IVP SCH (08:14)
[2019-12-19] MEDS: Chlorhexidine Rinse 15 ML MOUTHWASH MM SCH ×2 (08:14→21:14)
[2019-12-19] MEDS: Doxycycline 100 MG CAPSULE PO SCH ×2 (08:14→21:14)
[2019-12-19] MEDS: *HR* Amiodarone 200 MG TABLET PO SCH (08:15)
[2019-12-19] MEDS: Folic Acid 1 MG TABLET PO SCH (08:15)
[2019-12-19] MEDS: Sennosides/Docusate Sodium TABLET PO SCH (08:15)
[2019-12-19] MEDS: Thiamine (B-1) 100 MG TABLET PO SCH (08:15)
[2019-12-19] MEDS: Finasteride 5 MG TABLET PO SCH (08:15)
[2019-12-19] MEDS: Aspirin Enteric Coated 81 MG Tablet PO SCH (08:15)
[2019-12-19] MEDS: Bisacodyl 10 MG RECTAL SUPPOSITORY RC SCH (08:16)
[2019-12-19] MEDS: Budesonide/Formoterol 160/4.5 1 PUFF INH IH SCH (11:00)
[2019-12-19] MEDS: *HR* OxyCODONE/APAP 5/325 TABLET PO PRN (19:08)
[2019-12-20] MEDS: Ipratropium/Albuterol Neb 3 ML IH SCH ×2 (03:41→09:38)
[2019-12-20] MEDS: *HR* Heparin 5,000 UNIT/ML VIAL SQ SCH (06:25)
[2019-12-20 07:27] VITALS: BP 125/63
[2019-12-20] MEDS: Insulin LISPRO 300 UNITS/3 ML VIAL SQ SCH (07:33)
[2019-12-20] MEDS: Chlorhexidine Rinse 15 ML MOUTHWASH MM SCH (07:41)
[2019-12-20] MEDS: Thiamine (B-1) 100 MG TABLET PO SCH (07:41)
[2019-12-20] MEDS: Aspirin Enteric Coated 81 MG Tablet PO SCH (07:41)
[2019-12-20] MEDS: Folic Acid 1 MG TABLET PO SCH (07:41)
[2019-12-20] MEDS: *HR* Amiodarone 200 MG TABLET PO SCH (07:41)
[2019-12-20] MEDS: Doxycycline 100 MG CAPSULE PO SCH (07:42)
[2019-12-20] MEDS: Sennosides/Docusate Sodium TABLET PO SCH (07:42)
[2019-12-20] MEDS: Finasteride 5 MG TABLET PO SCH (07:42)
[2019-12-20] MEDS: Bisacodyl 10 MG RECTAL SUPPOSITORY RC SCH (07:42)
[2019-12-20] MEDS: Budesonide/Formoterol 160/4.5 1 PUFF INH IH SCH (09:38)
== END 2019-12-20 11:37 | disposition home or self-care (01) | DRG 233 ==
LOC: INVDIALAB 07:59 → 2ANU 14:14 → ICNU 12-12 08:42 → 2NNU 12-16 19:13
PROVIDERS: ADMIT Internal Medicine Interventional Cardiology; ATTEND Internal Medicine Interventional Cardiology